=== PATIENT | female | born 2000 | race Caucasian/White ===

== ENCOUNTER 2020-08-02 01:03 | Emergency (ER) | payer OTHER, MEDICAID, SELFPAY ==
--- NOTE | ~2020-08-02 | US_ITS ---
EXAMINATION: ULTRASOUND OF THE PELVIS CLINICAL INFORMATION: Vaginal bleeding. COMPARISON: CT 02/12/2020. TECHNIQUE: Transabdominal and transvaginal pelvic ultrasound. A transvaginal study was performed in addition to the transabdominal study which did not yield an adequate examination of the uterus and ovaries due to superimposed distended gas-filled loops of bowel. FINDINGS: The uterus is normal in size and appearance, measuring 6.9 x 3.9 x 5.5 cm longitudinally, anteroposteriorly and transversely. The endometrial stripe thickness is normal, measuring 0.5 cm in thickness. No focal myometrial mass is seen. The ovaries bilaterally are visualized, with the right ovary measuring 2.5 x 2.3 x 1.4 cm and the left ovary measuring 5.2 x 4.3 x 3.5 cm. Cyst in the left ovary measuring 3.4 x 2.1 x 3.3 cm. No adnexal mass or free fluid collection seen. US/US pelvic complete IMPRESSION: Normal appearance of the uterus. 3.4 cm left ovarian cyst noted..
--- NOTE | ~2020-08-02 | US_ITS ---
EXAMINATION: ULTRASOUND OF THE PELVIS CLINICAL INFORMATION: Vaginal bleeding. COMPARISON: CT 02/12/2020. TECHNIQUE: Transabdominal and transvaginal pelvic ultrasound. A transvaginal study was performed in addition to the transabdominal study which did not yield an adequate examination of the uterus and ovaries due to superimposed distended gas-filled loops of bowel. FINDINGS: The uterus is normal in size and appearance, measuring 6.9 x 3.9 x 5.5 cm longitudinally, anteroposteriorly and transversely. The endometrial stripe thickness is normal, measuring 0.5 cm in thickness. No focal myometrial mass is seen. The ovaries bilaterally are visualized, with the right ovary measuring 2.5 x 2.3 x 1.4 cm and the left ovary measuring 5.2 x 4.3 x 3.5 cm. Cyst in the left ovary measuring 3.4 x 2.1 x 3.3 cm. No adnexal mass or free fluid collection seen. US/US transvaginal IMPRESSION: Normal appearance of the uterus. 3.4 cm left ovarian cyst noted..
[2020-08-02 01:19] VITALS: BP 137/82; PULSE 94; RESP 18; TEMP 36.9; O2SAT 98; BMI 30.1
[2020-08-02 02:18] LABS: MANUAL DIFF FLAG NO
[2020-08-02 02:21] LABS: Basophils Absolute Auto 0.1 X10*3/uL (0.0-0.2); Basophils Percent Auto 0.6 % (0-2); Eosinophils Absolute Auto 0.1 X10*3/uL (0.0-0.4); Eosinophils Percent Auto 0.9 % (0-4); Hematocrit 39.1 % (37-47); Hemoglobin 13.6 g/dl (12.0-16.0); Imm Gran Abs Auto 0.04 X10*3/uL (0.00-0.03); Imm Gran Pct Auto 0.3 % (0.0-0.4); Lymphocytes Absolute Auto 3.7 X10*3/uL (1.2-4.9); Lymphocytes Percent Auto 31.2 % (20-40); Mean Corpuscular HGB Conc 34.8 g/dl (31.0-35.0); Mean Corpuscular Hemoglobin 30.6 pg (27.0-33.0); Mean Corpuscular Volume 87.9 fL (80-98); Mean Platelet Volume 10.4 fL (9.4-12.3); Monocytes Percent Auto 8.2 % (2-11); Neutrophils Absolute Auto 6.9 X10*3/uL (2.0-8.3); Neutrophils Percent Auto 58.8 % (45-73); Platelet Count 373 X10*3/uL (160-400); Red Blood Count 4.45 X10*6/uL (4.20-5.50); Red Cell Distribution Width 12.3 % (11.0-16.0); White Blood Count 11.7 X10*3/uL (4.8-10.8)
[2020-08-02 02:22] LABS: Glucose Urine UA NEG (NEG); Leukocyte Esterase Urine NEG (NEG); Nitrite Urine NEG (NEG); Specific Gravity - Urine 1.025 (1.005-1.025); Urine Blood 3+ (NEG); Urine Ketones NEG (NEG); Urine Protein NEG (NEG-TRACE)
[2020-08-02 02:25] LABS: Appearance Urine CLEAR; Color Urine YELLOW
[2020-08-02 02:26] LABS: UPreg QC Valid YES; Urine Pregnancy NEGATIVE (NEGATIVE)
[2020-08-02 02:38] LABS: Squamous Epithelial Cell Urine TRACE /LPF; WBC Urine 0 /HPF (0-4)
[2020-08-02 02:51] LABS: Alanine Aminotransferase 15 U/L (0-31); Albumin Level 4.6 g/dL (3.5-5.0); Alkaline Phosphatase 113 U/L (39-117); Anion Gap 13 (12-20); Aspartate Amino Transferase 18 U/L (5-31); Bilirubin Total 0.4 mg/dL (0.0-1.0); Blood Urea Nitrogen 11 mg/dL (9-16); Calcium 9.4 mg/dL (8.4-10.2); Carbon Dioxide 23 mmol/L (22-29); Chloride 106 mmol/L (96-108); Creatinine Clr Calc Pharmacy 159.4; Estimated Glomerular Filt Rate > 60; Glucose Random 89 mg/dL (60-115); Potassium 4.1 mmol/L (3.3-5.1); Sodium 138 mmol/L (135-145); Total Protein 7.5 g/dL (6.5-8.0)
--- NOTE | 2020-08-02 02:59 | ED_ITS ---
HPI - Female Genitourinary General Chief complaint: Vaginal Bleeding Stated complaint: Vaginal Bleeding Time Seen by Provider: 08/02/20 01:16 Source: patient Mode of arrival: ambulatory History of Present Illness HPI Narrative: This is a 19-year-old female who presents with reported 2 weeks of menstrual bleeding, stating that she changes her tampon every hour and this is been associated with abdominal discomfort, diarrhea, chills, but denies any urinary pain/burning/frequency. She states that she contacted her roller engraver who recommended that she come in to be further evaluated in the emergency department. Patient does have a Nexplanon in place (2017). She denies any associated dizziness or shortness of breath. Related Data Home Medications Medication Instructions Recorded Confirmed albuterol sulfate 2 puff INHALATION Q4H PRN 08/02/20 08/02/20 loratadine 1 tab PO DAILY 08/02/20 08/02/20 triamcinolone acetonide 1 spray INTRANASAL DAILY 08/02/20 08/02/20 valacyclovir 1 tab PO DAILY 08/02/20 08/02/20 Allergies Allergy/AdvReac Type Severity Reaction Status Date / Time almond Allergy Anaphylaxis Verified 08/02/20 01:28 apple Allergy Anaphylaxis Verified 08/02/20 01:28 carrot Allergy Anaphylaxis Verified 08/02/20 01:28 celery Allergy Anaphylaxis Verified 08/02/20 01:28 [place] And Derivatives Allergy Anaphylaxis Verified 08/02/20 01:28 jenny Allergy Anaphylaxis Verified 08/02/20 01:28 pineapple Allergy Anaphylaxis Verified 08/02/20 01:28 strawberry Allergy Anaphylaxis Verified 08/02/20 01:28 SEASONAL ALLERGIES Allergy Mild RUNNY Uncoded 08/02/20 01:26 STUFFY NOSE Review of Systems Review of Systems: Pertinent positives and negatives as stated in HPI 10 point review systems is otherwise negative. PMFSH Past Medical History Source: nursing notes reviewed Medical History Asthma Nexplanon in place Surgical History Hx of tonsillectomy [place] teeth removed Social History Social History Advance Directives: No Physical Exam Vital Signs: Vital Signs: Last Vital Signs Temp 98.4 F 08/02/20 01:19 Pulse 94 08/02/20 01:19 Resp 18 02/27/21 01:19 BP 137/82 08/02/20 01:19 Pulse Ox 98 08/02/20 01:19 Body Mass Index 30.1 VITAL SIGNS: Reviewed. GENERAL: Well developed, well nourished, in no acute distress. HEAD: Normocephalic/atraumatic, EYES: PERRLA, EOMI, no pale conjunctiva EARS: Ext canals without abnormality, TMs non-bulging and non-erythematous NOSE: Nares patent bilateral OROPHARYNX: no oral lesions noted, posterior pharynx clear NECK: Supple, no adenopathy LUNGS: Normal breath sounds, no tachypnea SpO2<98> CARDIOVASCULAR: Regular rate and rhythm without noted murmurs, no JVD or lower extremity edema. ABDOMEN: Soft, non-tender on palpation, non-distended with bowel sounds. NEUROLOGIC: Alert and oriented x 4. Course Course Course Narrative: This is a 19-year-old female with history and clinical presentation of menorrhagia on history, but on clinical exam no evidence for extensive hemorrhage. Patient is neither tachycardic, tachypneic, nor is there evidence of pallor and review of all investigations is negative for evidence of anemia, ectopic , and ultrasound does not describe fibroids or findings suggestive of PCOS. Patient requesting pain medication was provided with combination analgesics, the above findings and results were discussed with her at bedside, and she was strongly recommended to follow-up with her roller engraver who is Dr. Tomlinson for further evaluation. MDM - Female Genitourinary Lab Data Result diagrams: 08/02/20 02:01 08/02/20 02:01 Labs: Lab Results 08/02/20 08/02/20 08/02/20 Range/Units 02:01 02:01 02:08 WBC 11.7 H (4.8-10.8) X10*3/uL RBC 4.45 (4.20-5.50) X10*6/uL Hgb 13.6 (12.0-16.0) g/dl Hct 39.1 (37-47) % MCV 87.9 (80-98) fL MCH 30.6 (27.0-33.0) pg MCHC 34.8 (31.0-35.0) g/dl RDW 12.3 (11.0-16.0) % Plt Count 373 (160-400) X10*3/uL MPV 10.4 (9.4-12.3) fL Immature Gran % (Auto) 0.3 (0.0-0.4) % Neut % (Auto) 58.8 (45-73) % Lymph % (Auto) 31.2 (20-40) % [place] % (Auto) 8.2 (2-11) % Eos % (Auto) 0.9 (0-4) % Baso % (Auto) 0.6 (0-2) % Lymph # (Auto) 3.7 (1.2-4.9) X10*3/uL [place] # (Auto) 1.0 (0.1-1.2) X10*3/uL Eos # (Auto) 0.1 (0.0-0.4) X10*3/uL Baso # (Auto) 0.1 (0.0-0.2) X10*3/uL Abs Immat Gran (auto) 0.04 H (0.00-0.03) X10*3/uL Absolute Neuts (auto) 6.9 (2.0-8.3) X10*3/uL Absolute Nucleated RBC 0.000 (0.0-0.012) X10*3/uL Nucleated RBC % (auto) 0.0 (0.0-0.2) /100WBC Sodium 138 (135-145) mmol/L Potassium 4.1 (3.3-5.1) mmol/L Chloride 106 (96-108) mmol/L Carbon Dioxide 23 (22-29) mmol/L Anion Gap 13 (12-20) BUN 11 (9-16) mg/dL Creatinine 0.66 (0.5-1.4) mg/dL Estim Creat Clear Calc 159.4 Estimated GFR > 60 Random Glucose 89 (60-115) mg/dL Calcium 9.4 (8.4-10.2) mg/dL Total Bilirubin 0.4 (0.0-1.0) mg/dL AST 18 (5-31) U/L ALT 15 (0-31) U/L Alkaline Phosphatase 113 (39-117) U/L Total Protein 7.5 (6.5-8.0) g/dL Albumin 4.6 (3.5-5.0) g/dL Urine Color YELLOW Urine Appearance CLEAR Urine pH 6.0 (5.0-8.0) Ur Specific [place] 1.025 (1.005-1.025) Urine Protein NEG (NEG-TRACE) MG/DL Urine Glucose (UA) NEG (NEG) MG/DL Urine Ketones NEG (NEG) MG/DL Urine Blood 3+ H (NEG) Urine Nitrite NEG (NEG) Ur Leukocyte Esterase NEG (NEG) Urine RBC 76-150 H (0) /HPF Urine WBC 0 (0-4) /HPF Ur Squamous Epith Cells TRACE /LPF Urine Bacteria NONE /LPF Urine Test (NEGATIVE) 08/02/20 Range/Units 02:08 WBC (4.8-10.8) X10*3/uL RBC (4.20-5.50) X10*6/uL Hgb (12.0-16.0) g/dl Hct (37-47) % MCV (80-98) fL MCH (27.0-33.0) pg MCHC (31.0-35.0) g/dl RDW (11.0-16.0) % Plt Count (160-400) X10*3/uL MPV (9.4-12.3) fL Immature Gran % (Auto) (0.0-0.4) % Neut % (Auto) (45-73) % Lymph % (Auto) (20-40) % [place] % (Auto) (2-11) % Eos % (Auto) (0-4) % Baso % (Auto) (0-2) % Lymph # (Auto) (1.2-4.9) X10*3/uL [place] # (Auto) (0.1-1.2) X10*3/uL Eos # (Auto) (0.0-0.4) X10*3/uL Baso # (Auto) (0.0-0.2) X10*3/uL Abs Immat Gran (auto) (0.00-0.03) X10*3/uL Absolute Neuts (auto) (2.0-8.3) X10*3/uL Absolute Nucleated RBC (0.0-0.012) X10*3/uL Nucleated RBC % (auto) (0.0-0.2) /100WBC Sodium (135-145) mmol/L Potassium (3.3-5.1) mmol/L Chloride (96-108) mmol/L Carbon Dioxide (22-29) mmol/L Anion Gap (12-20) BUN (9-16) mg/dL Creatinine (0.5-1.4) mg/dL Estim Creat Clear Calc Estimated GFR Random Glucose (60-115) mg/dL Calcium (8.4-10.2) mg/dL Total Bilirubin (0.0-1.0) mg/dL AST (5-31) U/L ALT (0-31) U/L Alkaline Phosphatase (39-117) U/L Total Protein (6.5-8.0) g/dL Albumin (3.5-5.0) g/dL Urine Color Urine Appearance Urine pH (5.0-8.0) Ur Specific [place] (1.005-1.025) Urine Protein (NEG-TRACE) MG/DL Urine Glucose (UA) (NEG) MG/DL Urine Ketones (NEG) MG/DL Urine Blood (NEG) Urine Nitrite (NEG) Ur Leukocyte Esterase (NEG) Urine RBC (0) /HPF Urine WBC (0-4) /HPF Ur Squamous Epith Cells /LPF Urine Bacteria /LPF Urine Test NEGATIVE (NEGATIVE) Discharge Plan Discharge Clinical Impression: Dysfunctional uterine bleeding Patient Disposition: Home, Self-Care Additional Instructions: 1. Recommend alternating [id number] Tylenol and ibuprofen for pain relief. 2. Please contact your roller engraver for re-evaluation and discussion for outpatient management. Do not hesitate to return to the emergency department should you develop any worsening pain, vaginal bleeding especially if associated with dizziness or shortness of breath. Prescriptions: No Action valacyclovir 500 mg tablet 1 tab PO DAILY RF: 0 triamcinolone acetonide 55 mcg aerosol,spray 1 spray intranasal DAILY RF: 0 albuterol sulfate 90 mcg/actuation HFA aerosol inhaler 2 puff inhalation Q4H PRN (Reason: wheezing) RF: 0 loratadine 10 mg tablet 1 tab PO DAILY RF: 0 Referrals: Rosa Prasad MD [Primary Care Provider] - 2 days (Re-evaluation outpatient management for DUB with negative workup in the emergency department (no evidence of fibroids on ultrasound).)
[2020-08-02] MEDS: Acetaminophen 325 MG TABLET 975 MG PO (03:56)
[2020-08-02] MEDS: Ketorolac Tromethamine 15 MG/ML VIAL IVPUSH (03:56)
== END 2020-08-02 04:08 | disposition home or self-care (01) ==
PROVIDERS: Emergency Provider Student in an Organized Health Care Education/Training Program; PCP Internal Medicine
DX: N93.8 Other specified abnormal uterine and vaginal bleeding (principal); Z79.3 Long term (current) use of hormonal contraceptives
CPT/HCPCS: 36415; 76830; 76856; 80053; 81001; 81025; 85025; 96374; 99283; 99284; J1885

== ENCOUNTER 2020-12-24 19:50 | Emergency (ER) | payer OTHER, MEDICAID, SELFPAY ==
--- NOTE | ~2020-12-24 | CT_ITS ---
EXAMINATION: CT ABDOMEN AND PELVIS WITH CONTRAST CLINICAL INFORMATION: Right lower quadrant pain COMPARISON: Ultrasound pelvis 08/02/2020, CT abdomen pelvis 02/12/2020 TECHNIQUE: Multidetector volumetric images were obtained from the superior aspect of the liver through the pubic symphysis following administration 85 mL of Omnipaque 350 intravenous contrast. Sagittal and coronal reformatted images were obtained on the technologist's workstation. Oral contrast: No This CT examination was performed using dose optimization techniques as appropriate, variously including the following: *Automated exposure control *Adjustment of mA and/or kV according to patient size (this includes techniques or standardized protocols for targeted exams where dose is matched to indication/reason for exam; i.e. extremities or head) *Use of iterative reconstruction technique DLP: 715 mGy-cm FINDINGS: LUNG BASES: The visualized lung bases are unremarkable. LIVER, GALLBLADDER, AND BILIARY TREE: The liver is remains mildly enlarged measuring 20.0 cm in greatest length (previously 21.6 cm). No focal liver masses or bile duct dilatation is seen. The gallbladder is contracted but otherwise unremarkable with no evidence of radiopaque gallstones, gallbladder wall thickening, or obvious pericholecystic inflammatory changes. PANCREAS: Unremarkable. SPLEEN: Unremarkable. ADRENAL GLANDS: Unremarkable. KIDNEYS AND URETERS: The kidneys are normal in size, shape, and attenuation. No hydronephrosis, hydroureter, or calculi seen. No perinephric stranding. BLADDER: Unremarkable. GASTROINTESTINAL TRACT: Diverticular changes are present without diverticulitis. The small and large bowel are unremarkable. The appendix is unremarkable. ABDOMINAL WALL: No significant hernia is appreciated. LYMPH NODES: Again seen are multiple small lymph nodes present in the root of the mesentery adjacent to the cecum as well as in the upper abdomen. Again seen are small bilateral external iliac nodes , the largest measuring 1.2 x 0.9 cm (series 4 image [id number]). No retroperitoneal lymphadenopathy is seen. VASCULAR: Unremarkable. PELVIC VISCERA: An anteverted uterus is present. Previously seen 4.6 x 3.2 x 4.4 cm water density cyst in the left ovary has resolved and there is now am 4.6 x 2.8 x 3.3 cm cyst in the right ovary (4:624). A small amount of free fluid is present in the cul-de-sac. OSSEOUS STRUCTURES: Unremarkable. CT/CT abdomen pelvis w con IMPRESSION: A Cause for the patient's right lower quadrant pain has not been found with certainty. There is a right ovarian cyst and some free fluid present in the pelvis which could be secondary to rupture. Incidentally noted again is: 1. Mildly enlarged fatty liver 2. Small nodes in the root of the mesentery 3. Colonic diverticula without diverticulitis
[2020-12-24 20:29] VITALS: BP 129/75; PULSE 97; RESP 16; TEMP 37; O2SAT 100; BMI 29.6
[2020-12-24 21:04] LABS: MANUAL DIFF FLAG NO
[2020-12-24 21:07] LABS: UPreg QC Valid YES; Urine Pregnancy NEGATIVE (NEGATIVE)
[2020-12-24 21:08] LABS: Appearance Urine CLEAR; Color Urine YELLOW; Glucose Urine UA NEG (NEG); Leukocyte Esterase Urine NEG (NEG); Nitrite Urine NEG (NEG); Specific Gravity - Urine 1.025 (1.005-1.025); Urine Blood NEG (NEG); Urine Ketones NEG (NEG); Urine Protein NEG (NEG-TRACE)
[2020-12-24 21:12] LABS: Basophils Absolute Auto 0.1 X10*3/uL (0.0-0.2); Basophils Percent Auto 0.6 % (0-2); Eosinophils Absolute Auto 0.1 X10*3/uL (0.0-0.4); Hematocrit 40.3 % (37-47); Hemoglobin 14.2 g/dl (12.0-16.0); Imm Gran Abs Auto 0.06 X10*3/uL (0.00-0.03); Imm Gran Pct Auto 0.4 % (0.0-0.4); Lymphocytes Absolute Auto 3.2 X10*3/uL (1.2-4.9); Lymphocytes Percent Auto 23.2 % (20-40); Mean Corpuscular HGB Conc 35.2 g/dl (31.0-35.0); Mean Corpuscular Hemoglobin 31.1 pg (27.0-33.0); Mean Corpuscular Volume 88.4 fL (80-98); Mean Platelet Volume 10.5 fL (9.4-12.3); Monocytes Absolute Auto 0.9 X10*3/uL (0.1-1.2); Monocytes Percent Auto 6.4 % (2-11); Neutrophils Absolute Auto 9.5 X10*3/uL (2.0-8.3); Neutrophils Percent Auto 68.4 % (45-73); Platelet Count 359 X10*3/uL (160-400); Red Blood Count 4.56 X10*6/uL (4.20-5.50); Red Cell Distribution Width 12.7 % (11.0-16.0); White Blood Count 13.9 X10*3/uL (4.8-10.8)
[2020-12-24 21:33] LABS: Anion Gap 13 (12-20); Blood Urea Nitrogen 9 mg/dL (9-16); Carbon Dioxide 23 mmol/L (22-29); Chloride 106 mmol/L (96-108); Estimated Glomerular Filt Rate > 60; Glucose Random 84 mg/dL (60-115); Potassium 4.2 mmol/L (3.3-5.1); Sodium 138 mmol/L (135-145)
--- NOTE | 2020-12-24 22:15 | ED.ABDPAIN ---
HPI - Abdominal Pain General Chief Complaint: Abdominal Pain Stated Complaint: ABD pain Time Seen by Provider: 12/24/20 22:15 Source: patient Mode of arrival: ambulatory Limitations: no limitations History of Present Illness HPI narrative: Patient with lower abdominal pain, she had diarrhea today and saw black, denied taking peptol bismol. No fever. Patient is 10 days late for her period. MD elicited complaint: abdominal pain Onset (ago): week(s) Pain Consistency: intermittent Location: RLQ Quality: cramping Associated symptoms: diarrhea Related Data Home Medications Medication Instructions Recorded Confirmed albuterol sulfate 2 puff INHALATION Q4H PRN 08/02/20 12/24/20 loratadine 1 tab PO DAILY 08/02/20 12/24/20 valacyclovir 1 tab PO DAILY 08/02/20 12/24/20 Previous Rx's Medication Instructions Recorded naproxen [Naprosyn] 500 mg PO BID #20 tab 12/25/20 Allergies Allergy/AdvReac Type Severity Reaction Status Date / Time almond Allergy Anaphylaxis Verified 12/24/20 20:37 apple Allergy Anaphylaxis Verified 12/24/20 20:37 carrot Allergy Anaphylaxis Verified 12/24/20 20:37 celery Allergy Anaphylaxis Verified 12/24/20 20:37 [place] And Derivatives Allergy Anaphylaxis Verified 12/24/20 20:37 jenny Allergy Anaphylaxis Verified 12/24/20 20:37 pineapple Allergy Anaphylaxis Verified 12/24/20 20:37 strawberry Allergy Anaphylaxis Verified 12/24/20 20:37 SEASONAL ALLERGIES Allergy Mild RUNNY Uncoded 12/24/20 20:37 STUFFY NOSE Review of Systems Constitutional: Reports no additional constitutional complaints Eyes: Reports no additional eye complaints Denies dizziness Cardiovascular: Reports no additional cardiovascular complaints Respiratory: Reports as per HPI Gastrointestinal: Reports no additional gastrointestinal complaints Genitourinary: Reports no additional female genitourinary complaints Musculoskeletal: Reports no additional musculoskeletal complaints Skin/Breast: Denies rash Reports system reviewed and no additional complaints, except as documented, Denies dizziness and Denies Sensory deficit (Neuro) Psychiatric: Denies anxiety Physical Exam Vital Signs: Vital Signs: Last Vital Signs Temp 98.6 F 12/24/20 20:29 Pulse 97 12/24/20 20:29 Resp 16 12/24/20 20:29 BP 129/75 12/24/20 20:29 Pulse Ox 100 12/24/20 20:29 Body Mass Index 29.6 Const: General: healthy appearing Nutritional Appearance: average body habitus Orientation/consciousness: oriented to person and patient oriented x3 Limitations: no limitations HENMT: Head: Yes normal to inspection Ears: external ears normal General nose exam: Normal external nose present Mouth: Normal oral and palatal mucosa present and oropharynx normal Throat: Yes posterior oropharynx normal Eyes: General: appearance normal, both eyes and all related structures Neck: Other: supple Neck: Yes normal visual inspection Chest: Chest palpation & inspection: normal inspection of the chest Resp: Auscultation: clear to auscultation bilaterally Cardio: Jugular venous distension: no JVD Rate: regular rate Rhythm: regular rhythm Heart sounds: S1 normal heart sound present and S2 normal heart sound present GI: Other: right lower quadrant with guarding and rebound Inspection: Yes normal to inspection Auscultation: normal bowel sounds : General: Yes no CVA tenderness Back/Spine/Pelvis: Back: no CVA tenderness Skin: General skin exam: no rashes or lesions noted Neuro: General: oriented to person and patient oriented x3 Cranial nerves: Yes CN's II-XII intact bilaterally Motor exam (neuro): 5/5 motor strength present throughout Sensory Exam: No Sensory deficit (Neuro) Extrem: General: Yes normal to inspection Psych: Appearance: grossly normal Course Reevaluation(s) Reevaluation #1: patients history not consistent with appendicitis, although she had tenderness and guarding in RLQ. Ct scan negative for appendicitis looks consistent with ovarian cyst. Will dc on NSAIDs Time: 00:02 MDM - Abdominal Pain Lab Data Result diagrams: 12/24/20 20:57 12/24/20 20:57 Labs: Lab Results 12/24/20 12/24/20 12/24/20 Range/Units 20:49 20:49 20:57 WBC 13.9 H (4.8-10.8) X10*3/uL RBC 4.56 (4.20-5.50) X10*6/uL Hgb 14.2 (12.0-16.0) g/dl Hct 40.3 (37-47) % MCV 88.4 (80-98) fL MCH 31.1 (27.0-33.0) pg MCHC 35.2 H (31.0-35.0) g/dl RDW 12.7 (11.0-16.0) % Plt Count 359 (160-400) X10*3/uL MPV 10.5 (9.4-12.3) fL Immature Gran % (Auto) 0.4 (0.0-0.4) % Neut % (Auto) 68.4 (45-73) % Lymph % (Auto) 23.2 (20-40) % [place] % (Auto) 6.4 (2-11) % Eos % (Auto) 1.0 (0-4) % Baso % (Auto) 0.6 (0-2) % Lymph # (Auto) 3.2 (1.2-4.9) X10*3/uL [place] # (Auto) 0.9 (0.1-1.2) X10*3/uL Eos # (Auto) 0.1 (0.0-0.4) X10*3/uL Baso # (Auto) 0.1 (0.0-0.2) X10*3/uL Abs Immat Gran (auto) 0.06 H (0.00-0.03) X10*3/uL Absolute Neuts (auto) 9.5 H (2.0-8.3) X10*3/uL Absolute Nucleated RBC 0.000 (0.0-0.012) X10*3/uL Nucleated RBC % (auto) 0.0 (0.0-0.2) /100WBC Sodium (135-145) mmol/L Potassium (3.3-5.1) mmol/L Chloride (96-108) mmol/L Carbon Dioxide (22-29) mmol/L Anion Gap (12-20) BUN (9-16) mg/dL Creatinine (0.5-1.4) mg/dL Estim Creat Clear Calc Estimated GFR Random Glucose (60-115) mg/dL Calcium (8.4-10.2) mg/dL Urine Color YELLOW Urine Appearance CLEAR Urine pH 6.0 (5.0-8.0) Ur Specific [place] 1.025 (1.005-1.025) Urine Protein NEG (NEG-TRACE) MG/DL Urine Glucose (UA) NEG (NEG) MG/DL Urine Ketones NEG (NEG) MG/DL Urine Blood NEG (NEG) Urine Nitrite NEG (NEG) Ur Leukocyte Esterase NEG (NEG) Urine Test NEGATIVE (NEGATIVE) 12/24/20 Range/Units 20:57 WBC (4.8-10.8) X10*3/uL RBC (4.20-5.50) X10*6/uL Hgb (12.0-16.0) g/dl Hct (37-47) % MCV (80-98) fL MCH (27.0-33.0) pg MCHC (31.0-35.0) g/dl RDW (11.0-16.0) % Plt Count (160-400) X10*3/uL MPV (9.4-12.3) fL Immature Gran % (Auto) (0.0-0.4) % Neut % (Auto) (45-73) % Lymph % (Auto) (20-40) % [place] % (Auto) (2-11) % Eos % (Auto) (0-4) % Baso % (Auto) (0-2) % Lymph # (Auto) (1.2-4.9) X10*3/uL [place] # (Auto) (0.1-1.2) X10*3/uL Eos # (Auto) (0.0-0.4) X10*3/uL Baso # (Auto) (0.0-0.2) X10*3/uL Abs Immat Gran (auto) (0.00-0.03) X10*3/uL Absolute Neuts (auto) (2.0-8.3) X10*3/uL Absolute Nucleated RBC (0.0-0.012) X10*3/uL Nucleated RBC % (auto) (0.0-0.2) /100WBC Sodium 138 (135-145) mmol/L Potassium 4.2 (3.3-5.1) mmol/L Chloride 106 (96-108) mmol/L Carbon Dioxide 23 (22-29) mmol/L Anion Gap 13 (12-20) BUN 9 (9-16) mg/dL Creatinine 0.69 (0.5-1.4) mg/dL Estim Creat Clear Calc 150.0 Estimated GFR > 60 Random Glucose 84 (60-115) mg/dL Calcium 10.0 D (8.4-10.2) mg/dL Urine Color Urine Appearance Urine pH (5.0-8.0) Ur Specific [place] (1.005-1.025) Urine Protein (NEG-TRACE) MG/DL Urine Glucose (UA) (NEG) MG/DL Urine Ketones (NEG) MG/DL Urine Blood (NEG) Urine Nitrite (NEG) Ur Leukocyte Esterase (NEG) Urine Test (NEGATIVE) Imaging Data CT scan - abdomen: Radiologist's impression: IMPRESSION: A Cause for the patient's right lower quadrant pain has not been found with certainty. There is a right ovarian cyst and some free fluid present in the pelvis which could be secondary to rupture. Incidentally noted again is: 1. Mildly enlarged fatty liver 2. Small nodes in the root of the mesentery 3. Colonic diverticula without diverticulitis Discharge Plan Discharge Clinical Impression: Abdominal pain Qualifiers: Abdominal location: right lower quadrant Qualified Code(s): R10.31 - Right lower quadrant pain Ovarian cyst Qualifiers: Laterality: right Qualified Code(s): N83.201 - Unspecified ovarian cyst, right side Patient Disposition: Home, Self-Care Instructions: Ovarian Cyst (ED), Abdominal Pain (ED) Prescriptions: New naproxen [Naprosyn] 500 mg tablet 500 mg PO BID Qty: 20 RF: 0 No Action valacyclovir 500 mg tablet 1 tab PO DAILY RF: 0 albuterol sulfate 90 mcg/actuation HFA aerosol inhaler 2 puff inhalation Q4H PRN (Reason: wheezing) RF: 0 loratadine 10 mg tablet 1 tab PO DAILY RF: 0 PMFSH Past Medical History Medical History Asthma Nexplanon in place Surgical History Hx of tonsillectomy [place] teeth removed Social History Social History Advance Directives: No Advance Directives Information Provided: No Patient : No
[2020-12-24] MEDS: iohexoL 350 MG/ML 100 ML INFUS..BTL 85 ML IV (23:22)
[2020-12-24] MEDS: 0.9 % Sodium Chloride 1,000 ML 125 ML IVCONT (23:45)
== END 2020-12-25 00:25 | disposition home or self-care (01) ==
PROVIDERS: Emergency Provider Emergency Medicine; PCP Internal Medicine
DX: R10.31 Right lower quadrant pain (principal); N83.201 Unspecified ovarian cyst, right side
CPT/HCPCS: 36415; 74177; 80048; 81003; 81025; 85025; 96360; 99283; 99284; Q9967

== ENCOUNTER 2021-01-27 18:46 | Emergency (ER) | payer OTHER, MEDICAID, SELFPAY ==
--- NOTE | ~2021-01-27 | XR_ITS ---
EXAMINATION: XR ANKLE, LEFT CLINICAL INFORMATION: Left ankle injury. COMPARISON: None TECHNIQUE: AP, lateral, and mortise views of the left ankle. FINDINGS: The bones and soft tissues are normal. No fracture. Alignment is anatomic. Joint spaces are maintained. No joint effusion. XR/XR ankle LT 2V IMPRESSION: Unremarkable examination.
[2021-01-27 19:33] VITALS: BP 123/73; PULSE 85; RESP 18; TEMP 36.7; O2SAT 100; BMI 28.8
--- NOTE | 2021-01-27 20:14 | ED.LOWEXIN ---
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 She had a similar injury to the same area 2 weeks ago that was swollen and bruised but eventually got better. Today she sustained a superficial laceration to her heel that immediately started bleeding. She has pain with any movement of her foot or ankle. She is able to ambulate but with some pain. MD complaint: foot injury Onset (ago): hour(s) Type of Injury: blunt Place: work Severity scale (1-10): 6 Relieving factors: nothing Exacerbating factors: weight bearing, movement and palpation Context: direct blow Associated symptoms: swelling and able to partially bear weight Other symptoms: none Treatments prior to arrival: bandage Related Data Home Medications Medication Instructions Recorded Confirmed albuterol sulfate 90 mcg/actuation 2 puff INHALATION Q4H PRN 08/02/20 12/24/20 aerosol inhaler loratadine 10 mg tablet 1 tab PO DAILY 08/02/20 12/24/20 valacyclovir 500 mg tablet 1 tab PO DAILY 08/02/20 12/24/20 Previous Rx's Medication Instructions Recorded naproxen 500 mg tablet (Naprosyn) 500 mg PO BID #20 tab 12/25/20 Allergies Allergy/AdvReac Type Severity Reaction Status Date / Time almond Allergy Anaphylaxis Verified 12/24/20 20:37 apple Allergy Anaphylaxis Verified 12/24/20 20:37 carrot Allergy Anaphylaxis Verified 12/24/20 20:37 celery Allergy Anaphylaxis Verified 12/24/20 20:37 [place] And Derivatives Allergy Anaphylaxis Verified 12/24/20 20:37 jenny Allergy Anaphylaxis Verified 12/24/20 20:37 pineapple Allergy Anaphylaxis Verified 12/24/20 20:37 strawberry Allergy Anaphylaxis Verified 12/24/20 20:37 SEASONAL ALLERGIES Allergy Mild RUNNY Uncoded 12/24/20 20:37 STUFFY NOSE Review of Systems Review of Systems: Constitutional: No Fever, No Chills Musculoskeletal: + joint pain, No Myalgias Skin: + Skin Lesions, No rash Neuro: No Weakness, No Numbness Psych: No Anxiety Heme/Lymph: No Bruising PMFSH Past Medical History Medical History Asthma Nexplanon in place Surgical History Hx of tonsillectomy [employer] teeth removed Social History Social History Advance Directives: No Advance Directives Information Provided: Yes Patient : No Physical Exam Vital Signs: Vital Signs: Last Vital Signs Temp 98.0 F 01/27/21 19:33 Pulse 85 01/27/21 19:33 Resp 18 01/27/21 19:33 BP 123/73 01/27/21 19:33 Pulse Ox 100 01/27/21 19:33 Body Mass Index 28.8 Appearance: Alert. Oriented X3. No acute distress. HEENT: normal inspection CVS: Normal heart rate and rhythm. Pulses normal. Respiratory: No respiratory distress. Skin: Skin warm and dry. Normal skin color. Normal skin turgor. No rashes. Extremities: left posterior heel with 4cm superficial linear laceration with mild surrounding swelling, +tenderness, no active bleeding. negative [place] test. no calcaneus tenderness. normal left ankle inspection and nontender. pain with ROM. Neuro: Oriented X 3. No motor deficit. No sensory deficit. Ambulates with slow but steady gait, slight limp Course Course Course Narrative: 20 y/o female presenting with blunt injury to her left heel. Lac is superficial and does not need suturing. Xr negative. Local wound care provided and dressing applied. Given pain with movement and ambulation, patient requesting crutches. She is stable for d/c home with rest, ice, elevation and NSAID. Agreeable with plan. Discharge Plan Discharge Clinical Impression: Laceration, Contusion Patient Disposition: Home, Self-Care Instructions: Contusion in Adults (ED) Additional Instructions: Your x-ray today was normal. Rest & elevate your foot when possible. Recommend ANALY wrap for support and compression as needed. Use ice several times per day for the next 48 hours. You may bear weight as tolerated. If pain is too severe, use crutches until better. Take Motrin and/or Tylenol as needed for pain. Follow up with your doctor as needed. Prescriptions: No Action naproxen [Naprosyn] 500 mg tablet 500 mg PO BID Qty: 20 RF: 0 valacyclovir 500 mg tablet 1 tab PO DAILY RF: 0 albuterol sulfate 90 mcg/actuation HFA aerosol inhaler 2 puff inhalation Q4H PRN (Reason: wheezing) RF: 0 loratadine 10 mg tablet 1 tab PO DAILY RF: 0 Stand Alone Forms: Work/School Release
[2021-01-27] MEDS: Diphth,Pertus(ACell),Tet Adult 0.5 ML SYRINGE IM (20:49)
== END 2021-01-27 21:11 | disposition home or self-care (01) ==
PROVIDERS: Emergency Provider Emergency Medicine; PCP Internal Medicine
DX: S91.312A Laceration without foreign body, left foot, initial encounter (principal); S90.32XA Contusion of left foot, initial encounter; W20.8XXA Other cause of strike by thrown, projected or falling object, initial encounter; Y93.9 Activity, unspecified; Y92.9 Unspecified place or not applicable; Y99.0 Civilian activity done for income or pay
CPT/HCPCS: 73600; 90471; 90715; 99283; 99284

== ENCOUNTER 2021-02-22 18:08 | Emergency (ER) | payer OTHER, MEDICAID, SELFPAY ==
[2021-02-22] MEDS: EPINEPHrine 1 MG/ML VIAL 0.3 MG IM (18:22)
--- NOTE | 2021-02-22 18:23 | ED_ITS ---
HPI - Allergic Reaction General Chief complaint: Allergic Reaction Stated complaint: allergic reaction Time Seen by Provider: 02/22/21 18:17 Source: patient Mode of arrival: EMS Limitations: no limitations History of Present Illness HPI narrative: Patient just got stung by a bee on and on her left forearm complaining of hives swelling of the left forearm spreading to the face with lip swelling no tongue swelling no difficulty in swallowing speech is normal no shortness of breath patient never had any anaphylactic reaction before Related Data Home Medications Medication Instructions Recorded Confirmed albuterol sulfate 90 mcg/actuation 2 puff INHALATION Q4H PRN 08/02/20 12/24/20 aerosol inhaler loratadine 10 mg tablet 1 tab PO DAILY 08/02/20 12/24/20 valacyclovir 500 mg tablet 1 tab PO DAILY 08/02/20 12/24/20 Previous Rx's Medication Instructions Recorded naproxen 500 mg tablet (Naprosyn) 500 mg PO BID #20 tab 12/25/20 diphenhydramine HCl 25 mg tablet 50 mg PO Q6-8H PRN #20 tab 02/22/21 (Benadryl Allergy) prednisone 20 mg tablet 40 mg PO DAILY #10 tab 02/22/21 Allergies Allergy/AdvReac Type Severity Reaction Status Date / Time almond Allergy Anaphylaxis Verified 12/24/20 20:37 apple Allergy Anaphylaxis Verified 12/24/20 20:37 carrot Allergy Anaphylaxis Verified 12/24/20 20:37 celery Allergy Anaphylaxis Verified 12/24/20 20:37 [place] And Derivatives Allergy Anaphylaxis Verified 12/24/20 20:37 jenny Allergy Anaphylaxis Verified 12/24/20 20:37 pineapple Allergy Anaphylaxis Verified 12/24/20 20:37 strawberry Allergy Anaphylaxis Verified 12/24/20 20:37 SEASONAL ALLERGIES Allergy Mild RUNNY Uncoded 12/24/20 20:37 STUFFY NOSE Review of Systems Review of Systems: Yes all other systems are reviewed and are negative PMFSH Past Medical History Medical History Asthma Nexplanon in place Surgical History Hx of tonsillectomy [place] teeth removed Social History Social History Advance Directives: No Advance Directives Information Provided: No Physical Exam Vital Signs: Vital Signs: Last Vital Signs Temp 98 F 02/22/21 18:33 Pulse 75 02/22/21 18:33 Resp 18 02/22/21 18:33 BP 127/86 02/22/21 18:33 Pulse Ox 98 02/22/21 18:33 Body Mass Index 30.9 Appearance: Alert. Oriented X3. No acute distress. ENT: Pharynx normal. Oral Mucosa moist swelling of the lips tongue is normal uvula normal Neck: Normal inspection. Neck supple. No stridor CVS: Normal heart rate and rhythm. Pulses normal. Respiratory: No respiratory distress. Equal air entry bilateral, no wheezing/rales/rhonchi Abdomen: Soft and nontender. Skin: Skin warm and dry. Normal skin color. Normal skin turgor. Hives left arm spreading to the face Extremities: No lower extremity edema. Neuro: Oriented X 3. MDM - Allergic Reaction MDM Narrative Medical decision making narrative: Patient received epi, Solu-Medrol, Benadryl n ow feeling much better back to normal has EpiPen at home will discharge patient home prednisone and Benadryl Discharge Plan Discharge Clinical Impression: Allergic reaction Qualifiers: Encounter type: initial encounter Qualified Code(s): T78.40XA - Allergy, unspecified, initial encounter Patient Disposition: Home, Self-Care Instructions: General Allergic Reaction (ED) Additional Instructions: Your are allergic to bee sting. Stay away from bees Benadryl 1 tablet every 6 hours as needed Start taking prednisone if still have hives Prescriptions: New prednisone 20 mg tablet 40 mg PO DAILY Qty: 10 RF: 0 diphenhydramine HCl [Benadryl Allergy] 25 mg tablet 50 mg PO Q6-8H PRN (Reason: allergic reaction) Qty: 20 RF: 0 No Action naproxen [Naprosyn] 500 mg tablet 500 mg PO BID Qty: 20 RF: 0 valacyclovir 500 mg tablet 1 tab PO DAILY RF: 0 albuterol sulfate 90 mcg/actuation HFA aerosol inhaler 2 puff inhalation Q4H PRN (Reason: wheezing) RF: 0 loratadine 10 mg tablet 1 tab PO DAILY RF: 0
[2021-02-22] MEDS: diphenhydrAMINE HCL 50 MG/ML VIAL IVPUSH (18:29)
[2021-02-22] MEDS: methylPREDNISolone Sod Succ 125 MG/2 ML VIAL IVPUSH (18:30)
[2021-02-22] MEDS: Famotidine/PF 20 MG/2 ML VIAL IVPUSH (18:31)
[2021-02-22 18:33] VITALS: BP 127/86; BP 182/72; PULSE 74; PULSE 75; RESP 18; TEMP 36.6; O2SAT 98; BMI 30.9
--- NOTE | 2021-02-22 19:27 | PC.NURSE ---
Patient arrives to ED with allergic reaction to bee sting. Swelling of face, mouth, arms. Meds given per MAR with good affect. VSS. Resting safely.
--- NOTE | 2021-02-22 20:28 | MHC.CARE ---
CARE team support requested by ED physician re: pt who expressed that she has been experiencing episodes of depression and has been unsuccessful in connecting with a therapist. She denied SI/HI and engagement in self injurious behaviors. She is being treated in ED for an allergic reaction to a bee sting. This copywriter met with pt who requested support with finding a therapist. She was provided with a list of local counseling agencies, pamphlets for [facility] ([facility]) and [facility], and contact information for [facility] crisis team. She was also given information for [facility] in [place] and [facility] in [place], as well as the web address for [employer] [facility]. This copywriter will also complete a referral for [facility] on pt's behalf. ED physician Soy Johnson MD was updated re: resources provided.
[2021-02-22] MEDS: diphenhydrAMINE HCL 25 MG TABLET 50 MG PO (20:49)
== END 2021-02-22 21:02 | disposition home or self-care (01) ==
PROVIDERS: Emergency Provider Internal Medicine
DX: L50.0 Allergic urticaria (principal); Z79.899 Other long term (current) drug therapy
CPT/HCPCS: 96372; 96374; 96375; 99281; 99284; J0171; J1200; J2930; Q0163

== ENCOUNTER 2021-06-03 18:10 | Emergency (ER) | payer OTHER, SELFPAY ==
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
[2021-06-03 20:03] VITALS: BP 128/75; PULSE 100; RESP 16; TEMP 37.3; O2SAT 99; BMI 29.7
[2021-06-03 23:17] LABS: UPreg QC Valid YES; Urine Pregnancy NEGATIVE (NEGATIVE)
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
== END 2021-06-04 02:30 | disposition home or self-care (01) ==
PROVIDERS: Physician Assistant; Emergency Provider Emergency Medicine Emergency Medical Services; PCP Internal Medicine
DX: Z04.1 Encounter for examination and observation following transport accident (principal); M54.2 Cervicalgia
CPT/HCPCS: 70450; 72125; 81025; 99283; 99284